=== PATIENT | male | born 1965 | race Hispanic/Latino ===

== ENCOUNTER 2020-04-28 07:23 | Emergency (ER) | payer BC, OTHER ==
[~2020-04-28] VITALS: Ht 188 cm; Wt 99.8 kg
[~2020-04-28 07:23] MED LIST: DOXYCYCLINE HY100 MG PO; GLUCOVANCE PO; IBUPROFEN600 MG PO
[2020-04-28] MEDS ORDERED: CYCLOBENZAPRINE10 MG PO (07:55)
== END 2020-04-28 08:08 | disposition home or self-care (01) ==
LOC: ED 07:23
DX: M54.41 Lumbago with sciatica, right side (principal); E11.9 Type 2 diabetes mellitus without complications; Z79.84 Long term (current) use of oral hypoglycemic drugs
CPT/HCPCS: 99283; A9270